=== PATIENT | male | born 1945 | race Caucasian/White ===

== ENCOUNTER 2021-01-05 09:27 | Outpatient (CLI) | payer BC ==
[2021-01-05 10:34] LABS: Bilirubin Neg (Negative); Blood, Urine Negative (Negative); Clarity Clear (Clear); Glucose, Urine (Dipstick) 100 mg/dL (Negative); Ketone, Urine Negative (Negative); Leukocyte Negative (Negative); Nitrite Negative (Negative); Protein, Urine (Dipstick) Negative (Neg-Trace); Urobilinogen Normal mg/dL (Less than 2)
[2021-01-05 10:36] LABS: Hemoglobin 14.1 g/dL (13.5-17.5); Mean Corpuscular HGB CONC 33.1 g/dL (32.0-36.0); Mean Corpuscular Hemoglobin 30.7 pg (27.0-33.0); Mean Corpuscular Volume 92.8 fl (81.2-95.1); Mean Platelet Volume 10.1 fl (7.4-10.4); Platelet Count 251 10x3/uL (150-450); RBC Distribution Width 13.6 % (11.5-14.5); Red Blood Cell (RBC) Count 4.59 10x6/uL (4.32-5.72); White Blood Cell (WBC) Count 6.8 10x3/uL (3.5-10.5)
[2021-01-05 10:45] LABS: PTT 25.2 sec (22.0-33.0); Prothrombin Time 10.9 sec (9.5-12.1)
[2021-01-05 10:48] LABS: Anion Gap 12 mmol/L (10-20); BUN (Urea Nitrogen) 13 mg/dL (8.4-25.7); Calc. Creatinine Clearance 0 mL/min (70-130); Calcium 9.4 mg/dL (7.8-10.44); Carbon Dioxide 26 mmol/L (23-31); Chloride 106 mmol/L (98-107); Glucose 116 mg/dL (83-110); Potassium 4.7 mmol/L (3.5-5.1); Sodium 139 mmol/L (136-145)
[2021-01-05 10:51] LABS: Bacteria/HPF None Seen HPF (None Seen); RBC/HPF None Seen HPF (0-3); Squamous Epithelial 0-3 HPF (0-3); WBC/HPF None Seen HPF (0-3)
[2021-01-05 16:55] LABS: SARS-CoV-2 PCR by NAA Not Detected (NotDetected)
== END 2021-01-05 09:28 | disposition home or self-care (01) ==
LOC: LABBT 09:27
PROVIDERS: ATTEND Urology
DX: Z01.818 Encounter for other preprocedural examination (principal); R97.20 Elevated prostate specific antigen [PSA]; Z20.822 Contact with and (suspected) exposure to COVID-19
CPT/HCPCS: 80048; 81001; 85027; 85610; 85730; 87086; 93005; 93010; U0003; U0005

== ENCOUNTER 2021-01-07 07:39 | Day surgery (SDC) | payer BC ==
[2021-01-06 11:32] VITALS: BMI 24.5
[2021-01-07] MEDS ORDERED: Sodium Chloride 0.9% 100 ML ONE (08:21)
[2021-01-07] MEDS ORDERED: cefTRIAXone\\ROCEPHIN 1 GM VIAL ONE (08:21)
[2021-01-07] MEDS ORDERED: Propofol 500 MG/50 ML VIAL ONE ×2 (10:04→10:18)
[2021-01-07] MEDS ORDERED: Fentanyl 100 MCG/2 ML VIAL ONE (10:04)
[2021-01-07] MEDS ORDERED: Ondansetron PF 4 MG/2 ML Vial ONE (10:19)
[2021-01-07] MEDS ORDERED: Dexamethasone 20 MG/5 ML VIAL ONE (10:19)
[2021-01-07] MEDS ORDERED: Lidocaine 1% PF 5 ML VIAL ONE (10:19)
== END 2021-01-07 12:35 | disposition home or self-care (01) ==
LOC: SDC 07:39
PROVIDERS: ATTEND Urology
PROC: 0VB03ZX Excision of Prostate, Percutaneous Approach, Diagnostic (ICD-10-PCS; principal; 2021-01-07)
DX: C61 Malignant neoplasm of prostate (principal); I10 Essential (primary) hypertension; E78.5 Hyperlipidemia, unspecified; G43.909 Migraine, unspecified, not intractable, without status migrainosus; E11.9 Type 2 diabetes mellitus without complications; Z79.4 Long term (current) use of insulin; Z79.899 Other long term (current) drug therapy; Z88.5 Allergy status to narcotic agent
CPT/HCPCS: 88305; 88341; 88342; J0696; J1100; J2405; J2704; J3010; J3490

== ENCOUNTER 2021-02-08 09:00 | Outpatient (CLI) | payer BC ==
[2021-02-08] MEDS ORDERED: Iopamidol 370 76% 100 ML VIAL ONE (09:43)
== END 2021-02-08 09:01 | disposition home or self-care (01) ==
LOC: CT 09:00
PROVIDERS: ATTEND Urology
DX: C61 Malignant neoplasm of prostate (principal); R94.8 Abnormal results of function studies of other organs and systems; K80.20 Calculus of gallbladder without cholecystitis without obstruction
CPT/HCPCS: 74177; 78306; 82565; A9503

== ENCOUNTER 2021-02-09 15:39 | Outpatient (CLI) | payer BC | END 2021-02-09 15:40 | disposition home or self-care (01) | LOC: BICRAD 15:39 | PROVIDERS: ATTEND Urology | DX: R93.89 Abnormal findings on diagnostic imaging of other specified body structures (principal); M89.9 Disorder of bone, unspecified | CPT/HCPCS: 70260 ==

== ENCOUNTER 2021-02-19 12:58 | Outpatient (CLI) | payer BC | END 2021-02-19 12:59 | disposition home or self-care (01) | LOC: BICCT 12:58 | PROVIDERS: ATTEND Urology | DX: R93.89 Abnormal findings on diagnostic imaging of other specified body structures (principal) | CPT/HCPCS: 70470 ==

== ENCOUNTER 2021-03-10 07:25 | Outpatient (CLI) | payer BC ==
[2021-03-10 08:10] LABS: Estimated GFR-MDRD - POC Greater than 90
[2021-03-10] MEDS ORDERED: Iopamidol 370 76% 100 ML VIAL ONE (10:26)
== END 2021-03-10 07:26 | disposition home or self-care (01) ==
LOC: CT 07:25
PROVIDERS: ATTEND Surgery
DX: D16.4 Benign neoplasm of bones of skull and face (principal); G93.9 Disorder of brain, unspecified
CPT/HCPCS: 70496; 82565; Q9967

== ENCOUNTER 2021-03-22 07:30 | Inpatient (IN) | payer BC, MEDICARE ==
[2021-03-25] MEDS ORDERED: Fentanyl 100 MCG/2 ML VIAL ONE ×2 (07:09→08:46)
[2021-03-25] MEDS ORDERED: Dexmedetomidine 200 MCG/2 ML VIAL ONE (07:10)
[2021-03-25] MEDS ORDERED: Lidocaine 0.5%/Epinephrine 1:200,000 50 ml Vial ONE (07:24)
[2021-03-25] MEDS ORDERED: Thrombin 5000 UNITS/5 ML VIAL ONE (07:24)
[2021-03-25] MEDS ORDERED: ceFAZolin 2 GM/Dextrose 50 ML IVPB ONE (07:34)
[2021-03-25] MEDS ORDERED: Ketorolac Tromethamine 30 MG/ML VIAL ONE (07:48)
[2021-03-25] MEDS ORDERED: PROPOFOL 200 MG/20 ML VIAL ONE (07:48)
[2021-03-25] MEDS ORDERED: Lidocaine 1% PF 5 ML VIAL ONE (07:48)
[2021-03-25] MEDS ORDERED: Rocuronium Bromide 10 MG/ML (10ML VIAL) ONE (07:48)
[2021-03-25] MEDS ORDERED: Ondansetron PF 4 MG/2 ML Vial ONE (07:48)
[2021-03-25] MEDS ORDERED: Dexamethasone 20 MG/5 ML VIAL ONE (07:48)
[2021-03-25] MEDS ORDERED: ePHEDrine 50 MG/ML VIAL ONE (07:48)
[2021-03-25] MEDS ORDERED: PHENYLEPHRINE-NS 100 MCG/ML 10 ML SYRINGE ONE (07:48)
[2021-03-25] MEDS ORDERED: Bacitracin Zinc Ointment 30 gm TUBE ONE (08:05)
[2021-03-25] MEDS ORDERED: Phenylephrine 10 MG/ML VIAL ONE (09:04)
[2021-03-25] MEDS ORDERED: SUGAMMADEX SODIUM 200 MG/2 ML VIAL ONE (10:33)
[2021-03-25] MEDS ORDERED: Ondansetron HCl/PF 4 MG/2 ML Vial IVP PRN (10:44)
[2021-03-25] MEDS ORDERED: Promethazine HCl 25 MG/ML VIAL IVPB PRN (10:44)
[2021-03-25] MEDS ORDERED: Promethazine HCl 25 MG/ML VIAL IM PRN (10:44)
[2021-03-25] MEDS ORDERED: hydrALAZINE 20 MG/ML VIAL SLOW IVP PRN (11:09)
[2021-03-25] MEDS ORDERED: Labetalol HCl 100 MG/20 ML VIAL SLOW IVP PRN (11:09)
[2021-03-25] MEDS ORDERED: Ondansetron PF 4 MG/2 ML Vial IVP PRN (11:09)
[2021-03-25] MEDS ORDERED: Docusate 100 MG CAP PO PRN (11:09)
[2021-03-25] MEDS ORDERED: Promethazine HCl 12.5 MG in Sodium Chloride 0.9% 50 ML IVPB PRN (11:17)
[2021-03-25] MEDS ORDERED: Ibuprofen 200 MG TAB PO PRN (11:18)
[2021-03-25] MEDS ORDERED: Acetaminophen/Codeine 30-300mg Tablet PO PRN (11:18)
[2021-03-25] MEDS ORDERED: Morphine 4 MG/ML VIAL SLOW IVP PRN (11:32)
[2021-03-25 16:01] VITALS: BMI 24.8
[2021-03-25] MEDS ORDERED: Atorvastatin Calcium 10 MG TAB PO SCH (17:00)
[2021-03-25] MEDS: Sodium Chloride 0.9% 1,000 ML IV SCH (17:09)
[2021-03-25] MEDS: ceFAZolin 2 GM/Dextrose 50 ML 2 GM in Premix Bag 1 BAG IVPB SCH (17:10)
[2021-03-25] MEDS: HumaLOG 300 UNITS/3 ML VIAL SC SCH (17:11)
[2021-03-25 18:31] VITALS: BP 136/74
[2021-03-25] MEDS ORDERED: Losartan 25 MG TAB PO SCH (21:00)
[2021-03-25] MEDS: Acetaminophen 325 MG TAB PO PRN (22:39)
[2021-03-26] MEDS: Sodium Chloride 0.9% 1,000 ML IV SCH (00:32)
[2021-03-26] MEDS: ceFAZolin 2 GM/Dextrose 50 ML 2 GM in Premix Bag 1 BAG IVPB SCH ×2 (00:32→08:34)
[2021-03-26 04:01] LABS: #Lymphocytes 1.9 thou/uL (1.20-3.40); #Monocytes 1.4 thou/uL (0.11-0.59); #Neutrophils 12.5 thou/uL (1.40-6.50); %Basophils 0.1 % (0.0-1.0); %Eosinophils 0.1 % (0.0-10.0); %Monocytes 8.6 % (0.0-10.0); %Neutrophils 79.2 % (42.0-75.0); Hemoglobin 13.4 g/dL (14.0-18.0); Mean Corpuscular HGB CONC 31.4 g/dL (32.0-36.0); Mean Corpuscular Hemoglobin 30.8 pg (27.0-31.0); Mean Platelet Volume 7.5 fL (7.4-10.4); Platelet Count 235 thou/uL (130-400); RBC Distribution Width 11.8 % (11.5-14.5); Red Blood Cell (RBC) Count 4.34 mill/uL (4.70-6.10); White Blood Cell (WBC) Count 15.8 thou/uL (4.8-10.8)
[2021-03-26 04:23] LABS: Anion Gap 12 mmol/L (10-20); BUN (Urea Nitrogen) 13 mg/dL (8.4-25.7); Calc. Creatinine Clearance 81 mL/min (70-130); Calcium 8.7 mg/dL (7.8-10.44); Carbon Dioxide 22 mmol/L (23-31); Chloride 106 mmol/L (98-107); Glucose 230 mg/dL (83-110); Potassium 4.2 mmol/L (3.5-5.1); Sodium 136 mmol/L (136-145)
[2021-03-26] MEDS: Acetaminophen 325 MG TAB PO PRN (05:29)
[2021-03-26] MEDS: HumaLOG 300 UNITS/3 ML VIAL SC SCH (08:16)
[2021-03-26 08:23] VITALS: TEMP 98.7
[2021-03-26] MEDS ORDERED: Lantus 1000 UNITS/10 ML VIAL SC SCH (09:00)
[2021-03-26] MEDS ORDERED: HumaLOG 300 UNITS/3 ML VIAL SC PRN (11:45)
[2021-03-26] MEDS ORDERED: Dextrose 50% Abboject 50 ML SYRINGE IVP PRN (11:45)
[2021-03-26] MEDS ORDERED: Dextrose 5% in Water 1,000 ML IV PRN (11:45)
[2021-03-26] MEDS ORDERED: HumaLOG 300 UNITS/3 ML VIAL SC SCH (12:00)
== END 2021-03-26 13:30 | disposition home or self-care (01) | DRG 477 ==
LOC: SURG A 03-25 05:57 → CCU 03-25 13:50
PROVIDERS: ADMIT Surgery; ATTEND Surgery
PROC: 0NB Head and Facial Bones, Excision (ICD-10-PCS; principal; 2021-03-25)
PROC: 0NR Head and Facial Bones, Replacement (ICD-10-PCS; 2021-03-25)
PROC: 8E0ZXY6 Isolation (ICD-10-PCS; 2021-03-25)
DX: M89.8X8 Other specified disorders of bone, other site (principal); U07.1 COVID-19; I10 Essential (primary) hypertension; E11.9 Type 2 diabetes mellitus without complications; Z98.42 Cataract extraction status, left eye; Z98.41 Cataract extraction status, right eye; Z90.79 Acquired absence of other genital organ(s); Z98.52 Vasectomy status; Z79.899 Other long term (current) drug therapy; Z85.46 Personal history of malignant neoplasm of prostate
CPT/HCPCS: 36415; 36416; 70450; 80048; 85025; 88307; 88311; 93970; C1713; C1781; C1889; J0690; J1100; J1815; J1885; J2001; J2370; J2405; J2550; J2704; J3010; J3370; J3490; J7050

== ENCOUNTER 2024-01-19 07:36 | Emergency (ER) | payer BC, MEDICARE ==
[2024-01-19 07:58] LABS: #Basophils 0.03 10x3/uL (0.0-0.2); %Basophils 0.2 % (0.0-1.0); %Eosinophils 0.9 % (0.0-10.0); %Lymphocytes 6.3 % (21.0-51.0); %Monocytes 7.7 % (0.0-10.0); %Neutrophils 83.7 % (42.0-75.0); Hematocrit 36.4 % (42.0-52.0); Hemoglobin 11.9 g/dL (14.0-18.0); Mean Corpuscular HGB CONC 32.7 g/dL (32.0-36.0); Mean Corpuscular Hemoglobin 30.7 pg (27.0-31.0); Mean Corpuscular Volume 93.8 fL (78.0-98.0); Mean Platelet Volume 9.5 fL (7.4-10.4); Platelet Count 217 10x3/uL (130-400); RBC Distribution Width 13.7 % (11.5-14.5); Red Blood Cell (RBC) Count 3.88 mill/uL (4.70-6.10)
[2024-01-19 08:10] LABS: ALT (SGPT) 18 U/L (8-55); AST (SGOT) 19 U/L (5-34); Albumin 3.7 g/dL (3.4-4.8); Alkaline Phosphatase 47 U/L (40-110); Anion Gap 12 mmol/L (10-20); BUN (Urea Nitrogen) 18 mg/dL (8.4-25.7); Bilirubin, Total 1.3 mg/dL (0.2-1.2); Calc. Creatinine Clearance 0 mL/min (70-130); Calcium 8.8 mg/dL (7.8-10.44); Carbon Dioxide 25 mmol/L (23-31); Chloride 104 mmol/L (98-107); Estimated GFR 73; Globulin 2.6 g/dL (2.4-3.5); Glucose 203 mg/dL (83-110); Potassium 4.7 mmol/L (3.5-5.1); Protein, Total 6.3 g/dL (5.8-8.1); Sodium 136 mmol/L (136-145)
[2024-01-19] MEDS ORDERED: Acetaminophen 325 MG TAB ONE (08:10)
[2024-01-19] MEDS ORDERED: Lidocaine 4% Patch ONE (08:11)
[2024-01-19 08:15] LABS: Troponin I 0.012 ng/mL (< 0.028)
[2024-01-19] MEDS ORDERED: Iopamidol-370 76% 500 ML MDV (1 ML CHARGE) ONE (14:47)
== END 2024-01-19 11:03 | disposition home or self-care (01) ==
LOC: ERS 07:36
DX: I95.1 Orthostatic hypotension (principal); K80.20 Calculus of gallbladder without cholecystitis without obstruction; E04.2 Nontoxic multinodular goiter; E10.9 Type 1 diabetes mellitus without complications; I10 Essential (primary) hypertension; R29.700 NIHSS score 0
CPT/HCPCS: 36415; 71045; 71275; 80053; 84484; 85025; 85379; 93005; 96360; Q9967